=== PATIENT | female | born 1980 | race Caucasian/White ===

== ENCOUNTER 2022-05-30 23:09 | Inpatient (IN) | payer SELFPAY ==
[~2022-05-30] VITALS: Ht 165.1 cm; Wt 72.6 kg
[2022-05-30 23:50] LABS: BASOPHILS % 0.7 % (0.0-1.0); EOSINOPHILS # (AUTO) 0.1 (0.0-0.4); EOSINOPHILS % 1.5 % (0.0-6.0); HEMATOCRIT 42.3 % (34.2-44.1); HEMOGLOBIN 13.4 g/dL (12.0-16.0); LYMPHOCYTES # (AUTO) 0.8 (1.0-3.2); LYMPHOCYTES % 18.8 % (18.0-39.1); MEAN CORPUSCULAR HGB CONC 31.7 g/dL (31-35); MONOCYTES # (AUTO) 0.3 (0.2-0.8); MONOCYTES % 8.3 % (4.4-11.3); NEUTROPHILS # (AUTO) 2.9 (2.1-6.9); NEUTROPHILS % 70.5 % (38.7-80.0); PLATELET COUNT 163 x10e3/uL (140-360); RED BLOOD COUNT 4.19 x10e6/uL (3.6-5.1); RED CELL DISTRIBUTION WIDTH 14.9 % (11.7-14.4)
[2022-05-31] VITALS (8 sets, daily range): BP systolic 116–130; BP diastolic 85–94
[2022-05-31] MEDS: PIPERACILLIN/TAZOBACTAM 4.5 GM in SODIUM CHLORIDE 0.9% 100 ML IV SCH ×3 (00:14→18:00)
[2022-05-31 00:19] LABS: ALBUMIN 3.2 g/dL (3.5-5.0); ALBUMIN/GLOBULIN RATIO 0.7 (0.8-2.0)
[2022-05-31] MEDS ORDERED: FUROSEMIDE INJ 10 MG/ML 4 ML VIAL IV ONE (01:45)
[2022-05-31 02:17] LABS: CLARITY,URINE CLOUDY (CLEAR); COLOR,URINE YELLOW (YELLOW)
[2022-05-31 02:18] LABS: AMPHETAMINES SCREEN,URINE POSITIVE (NEGATIVE); KETONES,URINE NEGATIVE (NEGATIVE); LEUKOCYTE ESTERASE ,URINE NEGATIVE (NEGATIVE); NITRITE,URINE NEGATIVE (NEGATIVE); PHENCYCLIDINE SCREEN,URINE NEGATIVE (NEGATIVE); PROTEIN,URINE DIPSTICK 2+ (NEGATIVE); URINE UROBILINOGEN 1 mg/dL (0.2 - 1)
[2022-05-31 02:19] LABS: BENZODIAZEPINES SCREEN,URINE NEGATIVE (NEGATIVE)
[2022-05-31 02:38] LABS: AMORPHOUS SEDIMENT,URINE MANY (FEW); BACTERIA,URINE MANY /HPF; MUCUS,URINE FEW (RARE); TRANSITIONAL EPI CELLS,URINE FEW
[2022-05-31 02:39] LABS: EPITHELIAL CELLS,URINE MODERATE /LPF
[2022-05-31] MEDS ORDERED: LASIX20 MG PO (05:34)
[2022-05-31] MEDS: ENOXAPARIN 30 MG/0.3 ML SYR SC SCH (18:00)
[2022-05-31] MEDS ORDERED: CARVEDILOL 3.125 MG TAB PO STA (20:33)
[2022-06-01] VITALS (8 sets, daily range): BP systolic 110–132; BP diastolic 55–98
[2022-06-01 05:40] LABS: BASOPHILS % 0.6 % (0.0-1.0); EOSINOPHILS # (AUTO) 0.2 (0.0-0.4); EOSINOPHILS % 5.2 % (0.0-6.0); HEMATOCRIT 41.8 % (34.2-44.1); LYMPHOCYTES # (AUTO) 0.9 (1.0-3.2); LYMPHOCYTES % 19.8 % (18.0-39.1); MEAN CORPUSCULAR HEMOGLOBIN 31.6 pg (28-32); MEAN CORPUSCULAR HGB CONC 31.1 g/dL (31-35); MEAN CORPUSCULAR VOLUME 101.7 fL (81-99); MONOCYTES # (AUTO) 0.4 (0.2-0.8); NEUTROPHILS % 65.2 % (38.7-80.0); PLATELET COUNT 172 x10e3/uL (140-360); RED BLOOD COUNT 4.11 x10e6/uL (3.6-5.1); RED CELL DISTRIBUTION WIDTH 14.7 % (11.7-14.4)
[2022-06-01 06:28] LABS: ALBUMIN 2.5 g/dL (3.5-5.0); ALBUMIN/GLOBULIN RATIO 0.7 (0.8-2.0); ANION GAP 13.4 mmol/L (8-16); CALCIUM 8.2 mg/dL (8.4-10.2); CREATININE, SERUM 0.84 mg/dL (0.57-1.11); POTASSIUM 3.4 mmol/L (3.5-5.1)
[2022-06-01] MEDS ORDERED: NICOTINE 14 MG/EA PATCH TOP PRN (07:30)
[2022-06-01] MEDS ORDERED: POTASSIUM CHLORIDE 20 MEQ TAB CR PO ONE (08:00)
[2022-06-01 08:26] LABS: CHOL/HDL RATIO 4.7 (3.0-3.6)
[2022-06-01] MEDS ORDERED: FUROSEMIDE INJ 10 MG/ML 4 ML VIAL IV SCH (09:00)
[2022-06-01] MEDS: PIPERACILLIN/TAZOBACTAM 4.5 GM in SODIUM CHLORIDE 0.9% 100 ML IV SCH ×2 (09:54→16:13)
[2022-06-01] MEDS: FUROSEMIDE INJ 10 MG/ML 4 ML VIAL IV SCH ×2 (09:55→16:09)
[2022-06-01] MEDS: ASPIRIN 81 MG CHEW TAB PO SCH (09:57)
[2022-06-01] MEDS: CARVEDILOL 3.125 MG TAB PO SCH ×2 (09:57→20:46)
[2022-06-01] MEDS: ENOXAPARIN 30 MG/0.3 ML SYR SC SCH (16:09)
[2022-06-02] VITALS (8 sets, daily range): BP systolic 94–132; BP diastolic 68–89
[2022-06-02 06:47] LABS: BASOPHILS % 0.5 % (0.0-1.0); EOSINOPHILS # (AUTO) 0.2 (0.0-0.4); EOSINOPHILS % 5.5 % (0.0-6.0); HEMATOCRIT 39.8 % (34.2-44.1); HEMOGLOBIN 12.9 g/dL (12.0-16.0); LYMPHOCYTES # (AUTO) 0.9 (1.0-3.2); LYMPHOCYTES % 24.1 % (18.0-39.1); MEAN CORPUSCULAR HEMOGLOBIN 31.9 pg (28-32); MEAN CORPUSCULAR HGB CONC 32.4 g/dL (31-35); MEAN CORPUSCULAR VOLUME 98.3 fL (81-99); MONOCYTES # (AUTO) 0.3 (0.2-0.8); MONOCYTES % 8.7 % (4.4-11.3); NEUTROPHILS # (AUTO) 2.3 (2.1-6.9); NEUTROPHILS % 60.7 % (38.7-80.0); PLATELET COUNT 184 x10e3/uL (140-360); RED BLOOD COUNT 4.05 x10e6/uL (3.6-5.1); RED CELL DISTRIBUTION WIDTH 14.6 % (11.7-14.4)
[2022-06-02 07:02] LABS: ANION GAP 15.2 mmol/L (8-16); CALCIUM 8.7 mg/dL (8.4-10.2); CREATININE, SERUM 0.87 mg/dL (0.57-1.11); POTASSIUM 4.2 mmol/L (3.5-5.1)
[2022-06-02] MEDS: PIPERACILLIN/TAZOBACTAM 4.5 GM in SODIUM CHLORIDE 0.9% 100 ML IV SCH ×2 (09:55→17:31)
[2022-06-02] MEDS: CARVEDILOL 3.125 MG TAB PO SCH ×2 (09:56→20:46)
[2022-06-02] MEDS: FUROSEMIDE INJ 10 MG/ML 4 ML VIAL IV SCH ×2 (09:56→17:31)
[2022-06-02] MEDS: ASPIRIN 81 MG CHEW TAB PO SCH (09:56)
[2022-06-02] MEDS: ENOXAPARIN 30 MG/0.3 ML SYR SC SCH (17:31)
[2022-06-02] MEDS: NICOTINE 14 MG/EA PATCH TOP SCH (22:14)
[2022-06-03] VITALS: BP 93/73
[2022-06-03 04:00] VITALS: BP 111/93
[2022-06-03 07:58] VITALS: BP 110/79
[2022-06-03 08:24] VITALS: BP 110/79
[2022-06-03] MEDS: FUROSEMIDE INJ 10 MG/ML 4 ML VIAL IV SCH (08:31)
[2022-06-03] MEDS: ASPIRIN 81 MG CHEW TAB PO SCH (08:32)
[2022-06-03 08:35] VITALS: BP 119/97
[2022-06-03] MEDS: NICOTINE 14 MG/EA PATCH TOP SCH (08:36)
[2022-06-03] MEDS: CARVEDILOL 3.125 MG TAB PO SCH (08:36)
[2022-06-03] MEDS: PIPERACILLIN/TAZOBACTAM 4.5 GM in SODIUM CHLORIDE 0.9% 100 ML IV SCH (08:37)
[2022-06-03 11:59] VITALS: BP 110/88
[2022-06-03] MEDS ORDERED: DOXYCYCLINE HY100 MG PO (15:10)
[2022-06-03] MEDS ORDERED: NICODERM CQ1 EAC1 TOP (15:10)
[2022-06-03] MEDS ORDERED: BACTRIM DS TAB1 EACH PO (15:10)
[2022-06-03] MEDS ORDERED: ASPIRIN CHEW81 MG PO (15:10)
[2022-06-03] MEDS ORDERED: FUROSEMIDE40 MG PO (15:10)
[2022-06-03] MEDS ORDERED: COREG3.125 MG PO (15:10)
[2022-06-03] MEDS ORDERED: FUROSEMIDE 40 MG TAB PO SCH (17:00)
== END 2022-06-03 15:54 | disposition home or self-care (01) | DRG 292 ==
LOC: ER 23:27 → ERHOLD 05-31 02:49 → MED/SURG3 05-31 03:55
PROVIDERS: ADMIT Internal Medicine; ATTEND Internal Medicine
DX: I11.0 Hypertensive heart disease with heart failure (principal); L03.115 Cellulitis of right lower limb; L03.116 Cellulitis of left lower limb; N39.0 Urinary tract infection, site not specified; I50.9 Heart failure, unspecified; F17.210 Nicotine dependence, cigarettes, uncomplicated; Z20.822 Contact with and (suspected) exposure to COVID-19; F19.10 Other psychoactive substance abuse, uncomplicated; R94.5 Abnormal results of liver function studies
CPT/HCPCS: 36415; 71045; 71250; 80048; 80053; 80061; 80307; 81001; 83605; 83735; 83880; 84484; 85025; 87040; 87086; 93005; 93970; 94799; 99284; J1650; J1940; J2543; J7050

== ENCOUNTER 2022-09-24 14:39 | Inpatient (IN) | payer OTHER ==
[~2022-09-24] VITALS: Ht 165.1 cm; Wt 112.9 kg
[~2022-09-24 14:39] MED LIST: ASPIRIN CHEW81 MG PO; BACTRIM DS TAB1 EACH PO; COREG3.125 MG PO; DOXYCYCLINE HY100 MG PO; FUROSEMIDE40 MG PO; LASIX20 MG PO; LASIX40 MG PO; NICODERM CQ1 EAC1 TOP; POTASSIUM CHLO20 ME1 PO
[2022-09-24] MEDS ORDERED: FUROSEMIDE INJ 10 MG/ML 4 ML VIAL IV ONE (15:30)
[2022-09-24 15:31] LABS: BASOPHILS % 0.4 % (0.0-1.0); EOSINOPHILS # (AUTO) 0.1 (0.0-0.4); EOSINOPHILS % 1.4 % (0.0-6.0); HEMOGLOBIN 11.4 g/dL (12.0-16.0); LYMPHOCYTES # (AUTO) 0.6 (1.0-3.2); LYMPHOCYTES % 12.2 % (18.0-39.1); MEAN CORPUSCULAR HEMOGLOBIN 29.4 pg (28-32); MEAN CORPUSCULAR HGB CONC 30.8 g/dL (31-35); MEAN CORPUSCULAR VOLUME 95.4 fL (81-99); MONOCYTES # (AUTO) 0.5 (0.2-0.8); MONOCYTES % 9.6 % (4.4-11.3); NEUTROPHILS # (AUTO) 3.8 (2.1-6.9); PLATELET COUNT 180 x10e3/uL (140-360); RED BLOOD COUNT 3.88 x10e6/uL (3.6-5.1)
[2022-09-24 16:24] LABS: ALBUMIN 3.2 g/dL (3.5-5.0); ALBUMIN/GLOBULIN RATIO 0.8 (0.8-2.0); ANION GAP 12.9 mmol/L (8-16); CREATININE, SERUM 0.92 mg/dL (0.57-1.11); POTASSIUM 3.9 mmol/L (3.5-5.1)
[2022-09-24] MEDS ORDERED: SODIUM CHLORIDE FLUSH 10 ML SYR INJ PRN (16:30)
[2022-09-24 17:26] LABS: PHENCYCLIDINE SCREEN,URINE NEGATIVE (NEGATIVE)
[2022-09-24 17:27] LABS: AMPHETAMINES SCREEN,URINE POSITIVE (NEGATIVE); BENZODIAZEPINES SCREEN,URINE NEGATIVE (NEGATIVE)
[2022-09-24 17:57] LABS: CREATINE KINASE MB 3.2 ng/mL (0-5.0)
[2022-09-24] MEDS ORDERED: Vancomycin IV 1 GM in SODIUM CHLORIDE 0.9% 250ML 250 ML IV SCH (18:30)
[2022-09-24 18:47] VITALS: BP 134/91
[2022-09-24 20:00] VITALS: BP 128/97
[2022-09-24 21:00] VITALS: BP 128/97
[2022-09-24] MEDS ORDERED: SEROQUEL100 MG PO (23:02)
[2022-09-24] MEDS ORDERED: BENZONATATE200 MG PO (23:02)
[2022-09-24] MEDS ORDERED: SPIRONOLACTONE25 MG PO (23:02)
[2022-09-24] MEDS ORDERED: LOSARTAN POTASS25 MG PO (23:02)
[2022-09-24 23:04] VITALS: BP 128/97
[2022-09-24] MEDS: FUROSEMIDE INJ 10 MG/ML 4 ML VIAL IV SCH (23:25)
[2022-09-24] MEDS: Vancomycin IV 1 GM in SODIUM CHLORIDE 0.9% 250ML 250 ML IV SCH (23:25)
[2022-09-25] VITALS (7 sets, daily range): BP systolic 103–124; BP diastolic 71–95
[2022-09-25] MEDS ORDERED: ONDANSETRON HCL INJ 2MG/ML 2ML 2 MG/ML VIAL IV PRN
[2022-09-25] MEDS ORDERED: AMLODIPINE BESYLATE 10 MG TAB PO ONE
[2022-09-25] MEDS: ONDANSETRON HCL INJ 2MG/ML 2ML 2 MG/ML VIAL IV PRN ×2 (00:18→21:09)
[2022-09-25] MEDS: Morphine 4mg INJECTION 4 MG/ML INJ IV PRN ×2 (00:19→21:14)
[2022-09-25] MEDS: ALBUTEROL/IPRATROPIUM 3 ML NEB NEB SCH ×4 (01:00→19:00)
[2022-09-25 01:09] LABS: CREATINE KINASE MB 8.4 ng/mL (0-5.0)
[2022-09-25 04:56] LABS: ANION GAP 14.5 mmol/L (8-16); CREATININE, SERUM 0.83 mg/dL (0.57-1.11); POTASSIUM 3.5 mmol/L (3.5-5.1)
[2022-09-25] MEDS: FUROSEMIDE INJ 10 MG/ML 4 ML VIAL IV SCH ×3 (06:17→21:23)
[2022-09-25] MEDS ORDERED: AMLODIPINE BESYLATE 10 MG TAB PO SCH (09:00)
[2022-09-25] MEDS: Vancomycin IV 1 GM in SODIUM CHLORIDE 0.9% 250ML 250 ML IV SCH ×2 (09:38→21:10)
[2022-09-25 11:12] LABS: CREATINE KINASE MB 3.4 ng/mL (0-5.0)
[2022-09-25] MEDS ORDERED: SPIRONOLACTONE 25 MG TAB PO ONE (12:00)
[2022-09-25] MEDS ORDERED: METOLAZONE 5 MG TAB PO ONE (16:15)
[2022-09-25] MEDS: SPIRONOLACTONE 25 MG TAB PO SCH (17:38)
[2022-09-26] VITALS (9 sets, daily range): BP systolic 110–148; BP diastolic 97–99
[2022-09-26] MEDS: ALBUTEROL/IPRATROPIUM 3 ML NEB NEB SCH ×4 (01:00→19:00)
[2022-09-26] MEDS: ONDANSETRON HCL INJ 2MG/ML 2ML 2 MG/ML VIAL IV PRN (02:26)
[2022-09-26] MEDS: Morphine 4mg INJECTION 4 MG/ML INJ IV PRN (02:27)
[2022-09-26] MEDS: FUROSEMIDE INJ 10 MG/ML 4 ML VIAL IV SCH ×3 (06:48→21:52)
[2022-09-26] MEDS: Vancomycin IV 1 GM in SODIUM CHLORIDE 0.9% 250ML 250 ML IV SCH ×3 (08:00→20:08)
[2022-09-26] MEDS: FAMOTIDINE 20 MG TAB PO SCH ×2 (08:01→18:15)
[2022-09-26] MEDS: METOLAZONE 5 MG TAB PO SCH (08:04)
[2022-09-26] MEDS: SPIRONOLACTONE 25 MG TAB PO SCH ×2 (08:04→18:17)
[2022-09-26 11:20] LABS: INR 1.31; PROTHROMBIN TIME 16.4 seconds (11.9-14.5)
[2022-09-26] MEDS ORDERED: SODIUM CHLORIDE 0.9% 100 ML ONE (20:20)
[2022-09-27] VITALS (7 sets, daily range): BP systolic 129–134; BP diastolic 92–102
[2022-09-27] MEDS: ALBUTEROL/IPRATROPIUM 3 ML NEB NEB SCH ×3 (01:00→13:00)
[2022-09-27 05:20] LABS: BASOPHILS % 0.4 % (0.0-1.0); EOSINOPHILS # (AUTO) 0.1 (0.0-0.4); EOSINOPHILS % 1.6 % (0.0-6.0); HEMATOCRIT 35.8 % (34.2-44.1); HEMOGLOBIN 11.1 g/dL (12.0-16.0); LYMPHOCYTES # (AUTO) 0.5 (1.0-3.2); MEAN CORPUSCULAR VOLUME 93.5 fL (81-99); MONOCYTES # (AUTO) 0.6 (0.2-0.8); MONOCYTES % 11.4 % (4.4-11.3); NEUTROPHILS # (AUTO) 3.9 (2.1-6.9); NEUTROPHILS % 76.4 % (38.7-80.0); PLATELET COUNT 162 x10e3/uL (140-360); RED BLOOD COUNT 3.83 x10e6/uL (3.6-5.1); RED CELL DISTRIBUTION WIDTH 16.9 % (11.7-14.4)
[2022-09-27 05:57] LABS: ALBUMIN 3.2 g/dL (3.5-5.0); ALBUMIN/GLOBULIN RATIO 0.8 (0.8-2.0); ANION GAP 17.2 mmol/L (8-16); CALCIUM 9.6 mg/dL (8.4-10.2); CREATININE, SERUM 1.03 mg/dL (0.57-1.11); MAGNESIUM 1.6 MG/DL (1.3-2.1); POTASSIUM 3.2 mmol/L (3.5-5.1)
[2022-09-27] MEDS: FUROSEMIDE INJ 10 MG/ML 4 ML VIAL IV SCH ×2 (06:29→14:00)
[2022-09-27] MEDS: FAMOTIDINE 20 MG TAB PO SCH ×2 (08:26→16:48)
[2022-09-27] MEDS: METOLAZONE 5 MG TAB PO SCH (08:26)
[2022-09-27] MEDS: SPIRONOLACTONE 25 MG TAB PO SCH ×2 (08:26→16:48)
[2022-09-27] MEDS: Vancomycin IV 1 GM in SODIUM CHLORIDE 0.9% 250ML 250 ML IV SCH (10:53)
[2022-09-27] MEDS ORDERED: MAGNESIUM SULFATE 2GM/50ML 50 ML IV ONE (12:30)
[2022-09-27] MEDS: ONDANSETRON HCL INJ 2MG/ML 2ML 2 MG/ML VIAL IV PRN (13:16)
[2022-09-27] MEDS: Morphine 4mg INJECTION 4 MG/ML INJ IV PRN (13:20)
[2022-09-27] MEDS ORDERED: POTASSIUM CHLORIDE 20 MEQ TAB CR PO ONE (13:35)
[2022-09-27] MEDS ORDERED: CARVEDILOL 3.125 MG TAB PO SCH (17:00)
== END 2022-09-27 19:37 | disposition left against medical advice (07) | DRG 871 ==
LOC: ER 14:44 → INTOOBSV 16:19 → ERHOLD 16:19 → MED/SURG 18:25 → OBSVTOIN 09-26 14:50
PROVIDERS: ADMIT Internal Medicine; ATTEND Internal Medicine
DX: A41.9 Sepsis, unspecified organism (principal); I50.23 Acute on chronic systolic (congestive) heart failure; I42.0 Dilated cardiomyopathy; L03.116 Cellulitis of left lower limb; L03.115 Cellulitis of right lower limb; R65.20 Severe sepsis without septic shock; I11.0 Hypertensive heart disease with heart failure; F17.210 Nicotine dependence, cigarettes, uncomplicated; F15.10 Other stimulant abuse, uncomplicated; I07.1 Rheumatic tricuspid insufficiency; B19.20 Unspecified viral hepatitis C without hepatic coma; F20.9 Schizophrenia, unspecified; Z20.822 Contact with and (suspected) exposure to COVID-19; Z79.82 Long term (current) use of aspirin; Z91.14 Patient's other noncompliance with medication regimen; Z91.199 Patient's noncompliance with other medical treatment and regimen due to unspecified reason
CPT/HCPCS: 36415; 71045; 76705; 80048; 80053; 80202; 80307; 82550; 82553; 83605; 83735; 83880; 84484; 84702; 85025; 85610; 87040; 93005; 93306; 94799; 99284; G0378; J0692; J1940; J2270; J2405; J3475; J7050